=== PATIENT | female | born 1940 | race African-American/Black ===

== ENCOUNTER 2019-11-30 19:08 | Emergency (ER) | payer MEDICARE ==
[2019-11-30 19:54] LABS: #Monocytes 0.6 thou/uL (0.11-0.59); #Neutrophils 6.7 thou/uL (1.40-6.50); %Basophils 0.4 % (0.0-1.0); %Eosinophils 0.2 % (0.0-10.0); %Lymphocytes 21.6 % (21.0-51.0); %Monocytes 6.5 % (0.0-10.0); %Neutrophils 71.2 % (42.0-75.0); Hemoglobin 13.1 g/dL (12.0-16.0); Mean Corpuscular Hemoglobin 27.8 pg (27.0-31.0); Mean Corpuscular Volume 89.7 fL (78.0-98.0); Mean Platelet Volume 8.4 fL (7.4-10.4); Platelet Count 238 thou/uL (130-400); Red Blood Cell (RBC) Count 4.73 mill/uL (4.20-5.40); White Blood Cell (WBC) Count 9.4 thou/uL (4.8-10.8)
[2019-11-30] MEDS ORDERED: cloNIDine 0.1 MG TAB ONE (19:56)
--- NOTE | 2019-11-30 20:12 | CT ---
CT HEAD WITHOUT IV CONTRAST COMPARISON: 03/11/2011 HISTORY: Headache, hypertension, weakness. TECHNIQUE: Axial CT imaging at 5 mm intervals from vertex through skull base without contrast FINDINGS: There is confluent diminished attenuation seen throughout the periventricular white matter which does appear mildly progressed from the prior exam and is likely related to moderate to severe chronic small vessel ischemic changes. Remote lacunar infarctions are again seen in the left caudate head and left thalamus. There are now lacunar infarction seen within the right basal ganglia and right thalamus, the exact ages are indeterminate but also likely more remote in origin. There is no evidenc e of an acute cortical infarction, hemorrhage, mass effect, or midline shift. Mild cerebral volume loss is present. The ventricular system is normal in size, shape, and position for the degree of sulc al atrophy. Visualized paranasal sinuses and mastoid air cells are clear. Osseous structures appear intact.No other interval change IMPRESSION: 1. No acute intracranial abnormality demonstrated. 2. 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 Lacunar infarctions are now prese nt in the right thalamus and right basal ganglia. The exact ages are difficult to definitely determine, but the lacunar infarction in the right thalamus was probably present on the prior exam. 3. Progression in chronic small vessel ischemic changes. 4. Mild cerebral volume loss.
[2019-11-30 20:39] LABS: ALT (SGPT) 9 U/L (8-55); AST (SGOT) 13 U/L (5-34); Albumin 4.2 g/dL (3.4-4.8); Alkaline Phosphatase 67 U/L (40-110); Anion Gap 13 mmol/L (10-20); BUN (Urea Nitrogen) 9 mg/dL (9.8-20.1); Bilirubin, Total 0.3 mg/dL (0.2-1.2); Calc. Creatinine Clearance 0 mL/min (70-130); Carbon Dioxide 25 mmol/L (23-31); Chloride 102 mmol/L (98-107); Estimated GFR-MDRD 59; Globulin 3.5 g/dL (2.4-3.5); Glucose 103 mg/dL (83-110); Potassium 3.8 mmol/L (3.5-5.1); Protein, Total 7.7 g/dL (6.0-8.3); Sodium 136 mmol/L (136-145)
[2019-11-30] MEDS ORDERED: hydrALAZINE 20 MG/ML VIAL ONE (21:01)
== END 2019-11-30 21:44 | disposition home or self-care (01) ==
LOC: ERS 19:08
DX: I10 Essential (primary) hypertension (principal); Z79.82 Long term (current) use of aspirin; Z79.899 Other long term (current) drug therapy
CPT/HCPCS: 70450; 80053; 84484; 85025; 93005; J0360